=== PATIENT | male | born 1970 | race African-American/Black ===

== ENCOUNTER 2024-02-21 23:25 | Inpatient (IN) | payer MEDICAID ==
[~2024-02-21] VITALS: Ht 177.8 cm; Wt 81.7 kg
[2024-02-21 23:40] VITALS: BP 96/69; PULSE 92; RESP 20; TEMP 36.6404
[2024-02-22] VITALS: BP 96/69; PULSE 92; RESP 20; TEMP 36.61404; O2SAT 100
[2024-02-22] MEDS ORDERED: MORPHINE SULFATE 4 MG/ML INJ (FOR IV/IM USE) IV PRN
[2024-02-22] MEDS ORDERED: SENNOSIDES 8.6MG TABLET PO PRN
[2024-02-22] MEDS ORDERED: POLYETHYLENE GLYCOL 3350 (17GM) 1 DOSE PACK PO PRN
[2024-02-22] MEDS ORDERED: ACETAMINOPHEN 500MG TABLET PO PRN
[2024-02-22] MEDS ORDERED: LACTULOSE 20G/30ML UDC PO PRN
[2024-02-22] MEDS ORDERED: ONDANSETRON HCL 4MG/2ML INJ IV PRN
[2024-02-22] MEDS ORDERED: SENNOSIDES/DOCUSATE SOD 8.6/50MG TABLET PO PRN
[2024-02-22] MEDS ORDERED: DEXTROSE 50% WATER 50ML SYRINGE IV PRN
[2024-02-22] MEDS ORDERED: BISACODYL 10MG SUPP PR PRN
[2024-02-22] MEDS ORDERED: NON FORMULARY MED TOP PRN
[2024-02-22] MEDS ORDERED: NALOXONE HCL 0.4MG/ML VIAL IV PRN (00:45)
[2024-02-22] MEDS: HYDROCODONE/ACETAMINOPHEN 10/325MG TABLET PO PRN (05:29)
[2024-02-22] MEDS: BLOOD SUGAR DIAGNOSTIC STRIP TEST SCH (06:32)
[2024-02-22] MEDS: PANTOPRAZOLE 40MG DR TABLET PO SCH (06:32)
[2024-02-22 07:45] LABS: CHLORIDE 97 mEq/L (98-107); POTASSIUM 4.4 mEq/L (3.5-5.1); SODIUM 129 mEq/L (136-145)
[2024-02-22 07:46] LABS: CALCIUM 8.2 mg/dL (8.7-10.4); CARBON DIOXIDE 27 mEq/L (21-32)
[2024-02-22 07:51] LABS: GLUCOSE 200 mg/dL (70-105); UREA NITROGEN BLOOD 14 mg/dL (9-23)
[2024-02-22 07:53] LABS: ALANINE AMINOTRANSFERASE 8 IU/L (10-49); ALBUMIN 3.8 g/dL (3.2-4.8); ASPARTATE AMINOTRANSFERASE 11 IU/L (<34); PREALBUMIN 21.2 mg/dl (10.0-40.0)
[2024-02-22 07:54] LABS: BILIRUBIN TOTAL 0.8 mg/dL (0.1-1.0); PROTEIN TOTAL 6.5 g/dL (6.0-8.3)
[2024-02-22 08:00] VITALS: BP 110/74; PULSE 84; RESP 20; TEMP 36.6696; O2SAT 100
[2024-02-22 08:03] LABS: BASOPHILS % 0.3 % (0.0-2.0); EOSINOPHILS % 1.4 % (0.0-5.0); HEMATOCRIT. 38.9 % (42.0-52.0); HEMOGLOBIN. 13.1 g/dL (14.0-18.0); LYMPHOCYTES % 17.7 % (20.0-50.0); MEAN CORPUSCULAR HEMOGLOBIN 29.8 pg (28.0-32.0); MEAN CORPUSCULAR HGB CONC 33.7 g/dL (31.0-37.0); MEAN CORPUSCULAR VOLUME 88.6 fL (80.0-94.0); MEAN PLATELET VOLUME 8.5 fl (7.4-10.4); MONOCYTES % 14.7 % (2.0-8.0); NEUTROPHILS % 65.9 % (40.0-76.0); PLATELET 392 x1000/uL (130-400); RED BLOOD CELL COUNT 4.39 mill/uL (4.7-6.1); RED CELL DISTRIBUTION WIDTH 14.8 % (11.6-14.6); WHITE BLOOD COUNT 5.6 x1000/uL (4.5-11.0)
[2024-02-22] MEDS ORDERED: OXYCODONE HCL/ACETAMINOPHEN 5/325MG TABLET PO PRN (08:30)
[2024-02-22] MEDS: POLYETHYLENE GLYCOL 3350 (17GM) 1 DOSE PACK PO SCH (09:21)
[2024-02-22] MEDS: DOCUSATE SODIUM 250MG CAPSULE PO SCH (09:21)
[2024-02-22] MEDS: PREDNISONE 10MG TABLET PO SCH (09:21)
[2024-02-22] MEDS: FOLIC ACID 1MG TABLET PO SCH (09:21)
[2024-02-22] MEDS: MORPHINE SULFATE 30MG TABLET SR PO SCH (09:22)
[2024-02-22] MEDS: INSULIN LISPRO 100 UNITS/ML SUBCUT SCH (09:58)
[2024-02-22] MEDS ORDERED: ONDANSETRON HCL 4MG TABLET PO PRN (14:45)
[2024-02-22] MEDS ORDERED: CLONIDINE 0.1MG TABLET PO PRN (14:45)
[2024-02-22 20:00] VITALS: BP 119/79; PULSE 96; RESP 18; TEMP 36.61404; O2SAT 97
[2024-02-22] MEDS: ATORVASTATIN CALCIUM 20MG TABLET PO SCH (21:44)
[2024-02-23 08:00] VITALS: PULSE 98; RESP 20; TEMP 36.78072; O2SAT 98
[2024-02-23] MEDS: LIDOCAINE 5% PATCH TOP SCH (09:00)
[2024-02-23] MEDS: LISINOPRIL 10MG TABLET PO SCH (09:29)
[2024-02-23] MEDS: FERROUS SULFATE 325MG TABLET PO SCH (09:29)
[2024-02-23 13:05] LABS: THYROID STIMULATING HORMONE 2.93 uIU/mL (0.55-4.78)
[2024-02-24 05:37] LABS: CARBON DIOXIDE 25 mEq/L (21-32)
[2024-02-24 05:38] LABS: CALCIUM 9.3 mg/dL (8.7-10.4)
[2024-02-24 05:43] LABS: CREATININE 1.2 mg/dL (0.6-1.3); GLUCOSE 224 mg/dL (70-105); UREA NITROGEN BLOOD 22 mg/dL (9-23)
[2024-02-24 09:33] LABS: CHLORIDE 97 mEq/L (98-107); POTASSIUM 5.2 mEq/L (3.5-5.1); SODIUM 127 mEq/L (136-145)
[2024-02-24 20:00] VITALS: BP 120/72; PULSE 82; RESP 20; TEMP 36.22512; O2SAT 99
[2024-02-25 04:16] LABS: CLARITY URINE CLEAR (CLEAR); COLOR URINE YELLOW (YELLOW); GLUCOSE URINE 3+ (NEGATIVE); KETONES URINE NEGATIVE (NEGATIVE); LEUKOCYTE ESTERASE URINE NEGATIVE (NEGATIVE); NITRITE URINE NEGATIVE (NEGATIVE); OCCULT BLOOD URINE NEGATIVE (NEGATIVE); PH URINE 5.5 (4.5-8.0); PROTEIN URINE NEGATIVE (NEGATIVE); UROBILINOGEN URINE 0.2 E.U./dL (0.2-1.0)
[2024-02-25 04:21] LABS: BACTERIA URINE NONE SEEN; RBC URINE 0-2 /hpf (0-2); SQUAMOUS EPITHELIAL CELL URINE NONE SEEN /lpf (RARE/1+); WBC URINE 0-2 /hpf (0-2)
[2024-02-25 06:17] LABS: FOLIC ACID (FOLATE) SERUM 11.11 ng/mL (>5.38); VITAMIN B12 SERUM 815 pg/mL (211-911)
[2024-02-25 13:11] LABS: CHLORIDE 98 mEq/L (98-107); POTASSIUM 4.8 mEq/L (3.5-5.1); SODIUM 128 mEq/L (136-145)
[2024-02-25 13:12] LABS: CARBON DIOXIDE 26 mEq/L (21-32)
[2024-02-25 13:13] LABS: CALCIUM 9.1 mg/dL (8.7-10.4)
[2024-02-25 13:17] LABS: GLUCOSE 226 mg/dL (70-105); UREA NITROGEN BLOOD 20 mg/dL (9-23)
[2024-02-25 13:29] LABS: BASOPHILS % 0.5 % (0.0-2.0); EOSINOPHILS % 0.2 % (0.0-5.0); HEMATOCRIT. 36.6 % (42.0-52.0); HEMOGLOBIN. 12.1 g/dL (14.0-18.0); LYMPHOCYTES % 16.1 % (20.0-50.0); MEAN CORPUSCULAR HEMOGLOBIN 29.6 pg (28.0-32.0); MEAN CORPUSCULAR HGB CONC 33.1 g/dL (31.0-37.0); MEAN CORPUSCULAR VOLUME 89.5 fL (80.0-94.0); MEAN PLATELET VOLUME 8.4 fl (7.4-10.4); MONOCYTES % 9.9 % (2.0-8.0); NEUTROPHILS % 73.3 % (40.0-76.0); PLATELET 451 x1000/uL (130-400); RED BLOOD CELL COUNT 4.09 mill/uL (4.7-6.1); WHITE BLOOD COUNT 6.8 x1000/uL (4.5-11.0)
[2024-02-25] MEDS: SODIUM ZIRCONIUM CYCLOSILICATE 10GM/PACKET PO NR (14:30)
[2024-02-25 20:00] VITALS: BP 119/64; PULSE 83; RESP 20; TEMP 36.50292; O2SAT 0
[2024-02-25] MEDS: PREDNISONE 20MG TABLET PO NR (22:58)
[2024-02-26] MEDS: INSULIN LISPRO 100 UNITS/ML SUBCUT SCH (06:43)
[2024-02-26] MEDS ORDERED: INSULIN LISPRO 100 UNITS/ML SUBCUT SCH (07:00)
[2024-02-26 08:00] VITALS: BP 97/62; PULSE 94; RESP 18; TEMP 36.78072; O2SAT 99
[2024-02-26] MEDS: INSULIN LISPRO (LOW DOSE) 100 UNITS/ML SUBCUT SCH (09:00)
[2024-02-26] MEDS: ERGOCALCIFEROL 50000UNITS CAPSULE PO SCH (16:40)
[2024-02-26 20:00] VITALS: BP 103/68; PULSE 86; RESP 18; TEMP 36.50292; O2SAT 99
[2024-02-26] MEDS: INSULIN GLARGINE 100 UNITS/ML SUBCUT SCH (22:07)
[2024-02-27 07:21] LABS: BASOPHILS % 0.2 % (0.0-2.0); EOSINOPHILS % 0.4 % (0.0-5.0); HEMATOCRIT. 35.3 % (42.0-52.0); HEMOGLOBIN. 11.5 g/dL (14.0-18.0); LYMPHOCYTES % 13.1 % (20.0-50.0); MEAN CORPUSCULAR HEMOGLOBIN 28.9 pg (28.0-32.0); MEAN CORPUSCULAR HGB CONC 32.7 g/dL (31.0-37.0); MEAN CORPUSCULAR VOLUME 88.4 fL (80.0-94.0); MEAN PLATELET VOLUME 7.8 fl (7.4-10.4); MONOCYTES % 11.4 % (2.0-8.0); NEUTROPHILS % 74.9 % (40.0-76.0); PLATELET 400 x1000/uL (130-400); RED BLOOD CELL COUNT 3.99 mill/uL (4.7-6.1)
[2024-02-27 07:25] LABS: CARBON DIOXIDE 27 mEq/L (21-32); CHLORIDE 99 mEq/L (98-107); POTASSIUM 4.2 mEq/L (3.5-5.1); SODIUM 131 mEq/L (136-145)
[2024-02-27 07:27] LABS: CALCIUM 8.8 mg/dL (8.7-10.4)
[2024-02-27 07:31] LABS: GLUCOSE 206 mg/dL (70-105); URIC ACID 4.5 mg/dL (3.7-9.2)
[2024-02-27 07:32] LABS: UREA NITROGEN BLOOD 18 mg/dL (9-23)
[2024-02-27 07:33] LABS: T4 FREE 1.23 ng/dL (0.89-1.76)
[2024-02-27 08:00] VITALS: BP 99/68; PULSE 83; RESP 20; TEMP 36.44736; O2SAT 99
[2024-02-27 20:00] VITALS: BP 101/60; PULSE 82; RESP 16; TEMP 36.28068; O2SAT 96
[2024-02-28 08:00] VITALS: BP 111/73; PULSE 83; RESP 18; TEMP 36.16956; O2SAT 100
[2024-02-28 15:12] VITALS: PULSE 83; PULSE 92; RESP 18; TEMP 97.1
[2024-02-28 20:00] VITALS: BP 115/78; PULSE 97; RESP 19; TEMP 36.22512; O2SAT 98
[2024-02-29 08:00] VITALS: BP 113/77; PULSE 91; RESP 20; TEMP 36.3918; O2SAT 100
[2024-02-29 20:00] VITALS: BP 105/69; PULSE 84; RESP 19; TEMP 36.78072; O2SAT 100
[2024-02-29 22:38] VITALS: BP 105/69; PULSE 84; RESP 17; TEMP 36.78072; O2SAT 100
[2024-03-01 08:00] VITALS: BP 93/67; PULSE 81; RESP 18; TEMP 36.16956; O2SAT 97
[2024-03-01] MEDS: PREDNISONE 5MG TABLET PO SCH (10:11)
[2024-03-01] MEDS: PREDNISONE 20MG TABLET PO SCH (10:11)
[2024-03-01 20:00] VITALS: BP 98/50; PULSE 89; RESP 18; TEMP 36.72516; O2SAT 98
[2024-03-02 08:00] VITALS: BP 100/62; PULSE 90; RESP 16; TEMP 36.89184; O2SAT 100
[2024-03-02 20:00] VITALS: BP 116/84; PULSE 100; RESP 20; TEMP 36.6696; O2SAT 98
[2024-03-03 08:00] VITALS: BP 120/62; PULSE 107; RESP 20; TEMP 36.72516; O2SAT 100
[2024-03-03 20:00] VITALS: BP 106/74; PULSE 86; RESP 18; TEMP 36.72516; O2SAT 100
[2024-03-04 01:09] VITALS: BP 117/82; PULSE 100; RESP 18; TEMP 36.78072; O2SAT 98
[2024-03-04 05:47] LABS: BASOPHILS % 0.6 % (0.0-2.0); EOSINOPHILS % 0.6 % (0.0-5.0); HEMATOCRIT. 33.1 % (42.0-52.0); MEAN CORPUSCULAR HEMOGLOBIN 29.7 pg (28.0-32.0); MEAN CORPUSCULAR HGB CONC 33.1 g/dL (31.0-37.0); MEAN CORPUSCULAR VOLUME 89.9 fL (80.0-94.0); MEAN PLATELET VOLUME 7.5 fl (7.4-10.4); MONOCYTES % 9.9 % (2.0-8.0); NEUTROPHILS % 73.9 % (40.0-76.0); PLATELET 270 x1000/uL (130-400); RED BLOOD CELL COUNT 3.68 mill/uL (4.7-6.1); RED CELL DISTRIBUTION WIDTH 15.1 % (11.6-14.6); WHITE BLOOD COUNT 8.3 x1000/uL (4.5-11.0)
[2024-03-04 06:08] LABS: CALCIUM 7.9 mg/dL (8.7-10.4); CHLORIDE 105 mEq/L (98-107); POTASSIUM 3.4 mEq/L (3.5-5.1); SODIUM 138 mEq/L (136-145)
[2024-03-04 06:09] LABS: CARBON DIOXIDE 27 mEq/L (21-32)
[2024-03-04 06:12] LABS: DIFFERENTIAL COMMENT 1
[2024-03-04 06:14] LABS: CREATININE 0.9 mg/dL (0.6-1.3); GLUCOSE 199 mg/dL (70-105); UREA NITROGEN BLOOD 12 mg/dL (9-23)
[2024-03-04 08:00] VITALS: BP 115/78; PULSE 94; RESP 18; TEMP 36.22512; O2SAT 96
[2024-03-04] MEDS: POTASSIUM CHLORIDE 20MEQ/PACKET PO NR (09:08)
[2024-03-04] MEDS: INSULIN LISPRO 100 UNITS/ML SUBCUT SCH (12:07)
[2024-03-04] MEDS ORDERED: POTASSIUM CHLORIDE 20MEQ TABLET SR PO ONE (15:30)
[2024-03-04] MEDS: HYDROCODONE/ACETAMINOPHEN 10/325MG TABLET PO PRN (18:26)
[2024-03-04 20:00] VITALS: BP 117/82; PULSE 90; RESP 18; TEMP 36.22512; O2SAT 98
[2024-03-05 08:00] VITALS: BP 135/78; PULSE 92; RESP 20; TEMP 36.22512; O2SAT 99
[2024-03-05 08:17] VITALS: RESP 20
[2024-03-05 10:05] VITALS: BP 135/78; PULSE 92; TEMP 97.2; O2SAT 99
[2024-03-05] MEDS ORDERED: METF-416 MT (11:50)
[2024-03-05] MEDS ORDERED: ATOR20TA PO (11:50)
[2024-03-05] MEDS ORDERED: ERGO200D PO (11:50)
[2024-03-05] MEDS ORDERED: FOLI-43 PO (11:50)
== END 2024-03-05 11:55 | disposition home health service (06) | DRG 343 ==
PROVIDERS: ADMIT Physical Medicine & Rehabilitation Spinal Cord Injury Medicine; ATTEND Family Medicine Adult Medicine
DX: C79.51 Secondary malignant neoplasm of bone (principal); S24.153A Other incomplete lesion at T7-T10 level of thoracic spinal cord, initial encounter; N17.9 Acute kidney failure, unspecified; E22.2 Syndrome of inappropriate secretion of antidiuretic hormone; M84.48XA Pathological fracture, other site, initial encounter for fracture; C64.9 Malignant neoplasm of unspecified kidney, except renal pelvis; B35.1 Tinea unguium; C79.31 Secondary malignant neoplasm of brain; E11.65 Type 2 diabetes mellitus with hyperglycemia; E78.5 Hyperlipidemia, unspecified; X58.XXXA Exposure to other specified factors, initial encounter; I10 Essential (primary) hypertension; K42.9 Umbilical hernia without obstruction or gangrene; R26.9 Unspecified abnormalities of gait and mobility; G89.3 Neoplasm related pain (acute) (chronic); E78.00 Pure hypercholesterolemia, unspecified; E55.9 Vitamin D deficiency, unspecified; M47.816 Spondylosis without myelopathy or radiculopathy, lumbar region; Z82.49 Family history of ischemic heart disease and other diseases of the circulatory system; Z91.81 History of falling; Z85.528 Personal history of other malignant neoplasm of kidney; Z79.4 Long term (current) use of insulin; Y93.89 Activity, other specified; Y92.89 Other specified places as the place of occurrence of the external cause; Y99.8 Other external cause status
CPT/HCPCS: 36415; 72128; 72131; 80048; 80053; 80061; 81003; 82306; 82533; 82607; 82746; 82962; 83036; 83930; 83935; 84134; 84439; 84443; 84550; 85025; 92523; 93970; 97110; 97112; 97116; 97150; 97162; 97166; 97530; 97535; J1815; J7512